=== PATIENT | female | born 1995 | race Caucasian/White ===

== ENCOUNTER 2022-04-16 16:36 | Emergency (ER) | payer SELFPAY ==
[~2022-04-16] VITALS: Ht 160 cm; Wt 55.3 kg
[2022-04-16 16:44] VITALS: BP 131/77
[2022-04-16] MEDS ORDERED: CYCL-711 PO (18:21)
[2022-04-16] MEDS ORDERED: IBUP-2213 PO (18:21)
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
--- NOTE | 2022-04-16 19:04 | NUR ---
Patient discharged with v/s stable. Written and verbal after care instructions chest wall pain given and explained. Patient alert, oriented and verbalized understanding of instructions. Ambulatory with steady gait. All questions addressed prior to discharge. ID band removed. Patient advised to follow up with PMD. Rx of Flexeril and Ibuprofen given. Patient educated on indication of medication including possible reaction and side effects. Opportunity to ask questions provided and answered.
== END 2022-04-16 19:04 | disposition home or self-care (01) ==
LOC: MED 16:36
DX: R07.89 Other chest pain (principal); Z79.899 Other long term (current) drug therapy; V49.9XXA Car occupant (driver) (passenger) injured in unspecified traffic accident, initial encounter; Y93.89 Activity, other specified; Y92.488 Other paved roadways as the place of occurrence of the external cause; Y99.8 Other external cause status
CPT/HCPCS: 71045; 99283